=== PATIENT | female | born 1995 | race Caucasian/White ===

== ENCOUNTER → 2016-12-17 | Emergency (ER) | payer OTHER ==
[~2016-12-17] VITALS: Ht 162.6 cm; Wt 77.1 kg
[~2016-12-17] MED LIST: FLUORESCEIN OPHTH 1 MG STRIP OD ONE; METAL LOCK LOOP XX ONE; TRIMSOL10 OP
[2016-12-17 11:16] VITALS: BP 122/59
== END | disposition home or self-care (01) ==
LOC: M ED 10:56
DX: H10.31 Unspecified acute conjunctivitis, right eye (principal)